=== PATIENT | female | born 1980 | race Two or more races ===

== ENCOUNTER 2020-09-29 15:11 | Emergency (ER) | payer MEDICAID ==
[~2020-09-29] VITALS: Ht 157.5 cm; Wt 73.4 kg
[~2020-09-29 15:11] MED LIST: CETI10CA PO; METO-93 PO
--- NOTE | 2020-09-29 16:52 | NUR ---
PT AMBULATORY TO ROOM AT THIS TIME.
[2020-09-29] MEDS ORDERED: SODIUM CHLORIDE 0.9% 1,000ML IVBOLUS ONE (17:00)
[2020-09-29 17:12] LABS: BASOPHILS % (AUTO) 1 % (0-1); EOSINOPHILS % (AUTO) 3 % (1-7); LYMPHOCYTES % (AUTO) 10 % (22-44); MEAN CORPUSCULAR HEMOGLOBIN 31.5 pg (27.0-34.8); MEAN CORPUSCULAR HGB CONC 33.4 g/dL (32.4-35.8); MEAN PLATELET VOLUME 8.3 fL (7.4-10.4); MONOCYTES % (AUTO) 7 % (2-9); NEUTROPHILS % (AUTO) 80 % (42-75); PLATELET COUNT 279 x10^3/uL (130-400); RED BLOOD COUNT 4.86 x10^6/uL (3.82-5.3); RED CELL DISTRIBUTION WIDTH 14.2 % (9.6-15.2)
[2020-09-29 17:14] LABS: MD NO
--- NOTE | 2020-09-29 17:22 | NUR ---
THIS IS A 39 YO FEMALE CMING IN WITH C/O FEVER, BODY ACHES, HEADACHE, AND COUGH X2 DAYS, WITH ONE EPISODE OF NAUSEA AND DIARRHEA. TEMP AT HOME 102.6. TOOK 500MG TYLENOL AT 1400. A&OX4, RESPIRATIONS EVEN AND UNLABORED, FREQUENT DRY COUGH PRESENT, LUNG SOUNDS CLEAR BUT DIMINISHED THROUGHOUT. ALL MONITORING IN PLACE, VSS, NADN AT THIS TIME. NSR ON VELVET CUTTER, PIV PLACED, IVF RUNNING. CALL LIGHT IN REACH
[2020-09-29 17:23] LABS: ALANINE AMINOTRANSFERASE 126 U/L (12-78); ALBUMIN 4.6 g/dL (3.4-5.0); ANION GAP 5 mmol/L (5-15); CALCIUM 9.4 mg/dL (8.5-10.1); CHLORIDE 108 mmol/L (98-107)
[2020-09-29 17:25] LABS: ALKALINE PHOSPHATASE 89 U/L (45-117); BILIRUBIN,TOTAL 0.3 mg/dL (0.2-1.0); TOTAL PROTEIN 8.5 g/dL (6.4-8.2)
--- NOTE | 2020-09-29 17:55 | NUR ---
ERP IN ROOM FOR EVAL AND COVID SWAB
[2020-09-29 19:00] VITALS: BP 111/77
--- NOTE | 2020-09-29 19:14 | NUR ---
Patient given discharge instructions and they have confirmed that they understand the instructions. Patient ambulatory with steady gait.
== END 2020-09-29 19:23 | disposition home or self-care (01) ==
LOC: ED 17:30
DX: U07.1 COVID-19 (principal); B34.9 Viral infection, unspecified; R00.0 Tachycardia, unspecified
CPT/HCPCS: 36415; 71045; 80053; 83605; 84145; 85025; 87040; 87635; 93005; 96360; 99285; J7030

== ENCOUNTER 2020-10-02 09:04 | Emergency (ER) | payer MEDICAID ==
[~2020-10-02] VITALS: Ht 157.5 cm; Wt 73.0 kg
--- NOTE | 2020-10-02 10:15 | NUR ---
PATIENT WALKED BACK FROM LOBBY.
[2020-10-02 11:08] LABS: PLATELET (DIC) 193 x10^3/uL (130-400)
[2020-10-02 11:26] LABS: D-DIMER (DIC) < 0.19 ug/mlFEU (0.00-0.52); FIBRINOGEN 359 mg/dL (200-340); PROTIME 10.7 Seconds (9.6-11.5); PTT 27 Seconds (25-31)
[2020-10-02 11:43] LABS: ANION GAP 7 mmol/L (5-15); CALCIUM 9.1 mg/dL (8.5-10.1); CHLORIDE 109 mmol/L (98-107)
[2020-10-02 11:44] LABS: ALANINE AMINOTRANSFERASE 151 U/L (12-78); ALBUMIN 4.2 g/dL (3.4-5.0); ALKALINE PHOSPHATASE 82 U/L (45-117); BILIRUBIN,TOTAL 0.4 mg/dL (0.2-1.0); C-REACTIVE PROTEIN, QUANT 2.67 mg/dL (0.02-0.49); TOTAL PROTEIN 8.2 g/dL (6.4-8.2)
--- NOTE | 2020-10-02 12:02 | NUR ---
spoke with colleen in pharmacy. reviewed exclusion and inclusion criteria regarding medication. poc to ifuse over 1 hour then monitor for one hour.
[2020-10-02 12:11] LABS: BASOPHILS % (AUTO) 1 % (0-1); EOSINOPHILS % (AUTO) 0 % (1-7); LYMPHOCYTES % (AUTO) 13 % (22-44); MEAN CORPUSCULAR HEMOGLOBIN 31.9 pg (27.0-34.8); MEAN CORPUSCULAR HGB CONC 34.4 g/dL (32.4-35.8); MEAN PLATELET VOLUME 8.8 fL (7.4-10.4); MONOCYTES % (AUTO) 6 % (2-9); NEUTROPHILS % (AUTO) 81 % (42-75); PLATELET COUNT 196 x10^3/uL (130-400); RED BLOOD COUNT 4.97 x10^6/uL (3.82-5.3); RED CELL DISTRIBUTION WIDTH 14.1 % (9.6-15.2)
[2020-10-02 12:14] LABS: MD NO
[2020-10-02] MEDS ORDERED: FILTER 0.22 MICRON IV ONE (12:30)
[2020-10-02] MEDS ORDERED: BAMLANIVIMAB 700 MG in SODIUM CHLORIDE 0.9% 180 ML IVPB ONE (12:30)
[2020-10-02] MEDS ORDERED: ONDANSETRON ODT 4 MG ONE (13:57)
[2020-10-02] MEDS ORDERED: IBUPROFEN 600 MG TABLET ONE (13:58)
[2020-10-02] MEDS ORDERED: IBUPROFEN 200 MG TABLET PO ONE (14:00)
[2020-10-02] MEDS ORDERED: ONDANSETRON ODT 4 MG PO ONE (14:00)
[2020-10-02 15:48] VITALS: BP 100/76
== END 2020-10-02 15:53 | disposition home or self-care (01) ==
LOC: ED 09:38
DX: U07.1 COVID-19 (principal); B34.9 Viral infection, unspecified; R07.89 Other chest pain; R05 Cough; R50.9 Fever, unspecified; R00.0 Tachycardia, unspecified
CPT/HCPCS: 36415; 71045; 80053; 82728; 83605; 83615; 84145; 85025; 85049; 85379; 85384; 85610; 85730; 86140; 87040; 93005; 99285; J7050; M0239; Q0162; Q0239; 96365

== ENCOUNTER 2020-10-07 10:29 | Emergency (ER) | payer MEDICAID ==
[~2020-10-07] VITALS: Ht 157.5 cm; Wt 72.1 kg
[2020-10-07 12:01] LABS: ALBUMIN 3.7 g/dL (3.4-5.0); ANION GAP 8 mmol/L (5-15); BASOPHILS % (AUTO) 1 % (0-1); CALCIUM 9.2 mg/dL (8.5-10.1); CHLORIDE 109 mmol/L (98-107); EOSINOPHILS % (AUTO) 1 % (1-7); LYMPHOCYTES % (AUTO) 14 % (22-44); MEAN CORPUSCULAR HEMOGLOBIN 31.6 pg (27.0-34.8); MEAN CORPUSCULAR HGB CONC 34.2 g/dL (32.4-35.8); MEAN PLATELET VOLUME 9.2 fL (7.4-10.4); MONOCYTES % (AUTO) 6 % (2-9); NEUTROPHILS % (AUTO) 79 % (42-75); PLATELET COUNT 166 x10^3/uL (130-400); RED BLOOD COUNT 4.37 x10^6/uL (3.82-5.3); RED CELL DISTRIBUTION WIDTH 13.7 % (9.6-15.2)
[2020-10-07 12:08] LABS: ALANINE AMINOTRANSFERASE 62 U/L (12-78); ALKALINE PHOSPHATASE 80 U/L (45-117); BILIRUBIN,TOTAL 0.5 mg/dL (0.2-1.0); CREATININE 0.62 mg/dL (0.55-1.02); TOTAL PROTEIN 7.7 g/dL (6.4-8.2)
[2020-10-07] MEDS ORDERED: ACETAMINOPHEN 500 MG TABLET PO ONE (12:30)
[2020-10-07] MEDS ORDERED: SODIUM CHLORIDE 0.9% 1,000ML IVBOLUS ONE (12:30)
[2020-10-07] MEDS ORDERED: ACETAMINOPHEN 500 MG TABLET ONE (12:32)
[2020-10-07 12:49] LABS: MD SCAN
--- NOTE | 2020-10-07 13:20 | NUR ---
Pt provided with commode.
[2020-10-07 14:16] VITALS: BP 108/77
== END 2020-10-07 14:18 | disposition home or self-care (01) ==
LOC: ED 12:38
DX: U07.1 COVID-19 (principal); J18.1 Lobar pneumonia, unspecified organism; R51.9 Headache, unspecified; R00.0 Tachycardia, unspecified
CPT/HCPCS: 36415; 71045; 80053; 83605; 84145; 85025; 87040; 93005; 96360; 99285; J7030

== ENCOUNTER 2020-10-08 19:01 | Inpatient (IN) | payer MEDICAID ==
[~2020-10-08] VITALS: Ht 160 cm; Wt 72.2 kg
[2020-10-08] MEDS ORDERED: ACETAMINOPHEN 325 MG TABLET ONE (19:44)
[2020-10-08] MEDS ORDERED: ACETAMINOPHEN 325 MG TABLET PO ONE (20:00)
[2020-10-08] MEDS ORDERED: SODIUM CHLORIDE 0.9% 1,000ML IVBOLUS ONE (20:00)
[2020-10-08] MEDS ORDERED: SODIUM CHLORIDE FLUSH 10ML SYR IVF ONE (20:00)
[2020-10-08 20:42] LABS: ALANINE AMINOTRANSFERASE 48 U/L (12-78); ALBUMIN 3.3 g/dL (3.4-5.0); ANION GAP 11 mmol/L (5-15); CALCIUM 8.8 mg/dL (8.5-10.1); CHLORIDE 110 mmol/L (98-107); CREATININE 0.62 mg/dL (0.55-1.02)
[2020-10-08 20:44] LABS: ALKALINE PHOSPHATASE 70 U/L (45-117); BILIRUBIN,TOTAL 0.3 mg/dL (0.2-1.0); TOTAL PROTEIN 7.2 g/dL (6.4-8.2)
[2020-10-08 20:53] LABS: BASOPHILS % (AUTO) 1 % (0-1); EOSINOPHILS % (AUTO) 1 % (1-7); LYMPHOCYTES % (AUTO) 17 % (22-44); MEAN CORPUSCULAR HEMOGLOBIN 31.3 pg (27.0-34.8); MEAN CORPUSCULAR HGB CONC 34.5 g/dL (32.4-35.8); MEAN PLATELET VOLUME 8.6 fL (7.4-10.4); MONOCYTES % (AUTO) 9 % (2-9); NEUTROPHILS % (AUTO) 73 % (42-75); PLATELET COUNT 253 x10^3/uL (130-400); RED BLOOD COUNT 4.11 x10^6/uL (3.82-5.3); RED CELL DISTRIBUTION WIDTH 13.4 % (9.6-15.2)
[2020-10-08] MEDS: NS + 40MEQ KCL 1,000 ML IV SCH (21:00)
[2020-10-08] MEDS ORDERED: DEXAMETHASONE 4 MG/ML, 5ML IVPush ONE (21:00)
[2020-10-08] MEDS ORDERED: DEXAMETHASONE 4 MG/ML, 1ML ONE (21:12)
[2020-10-08 21:19] LABS: MD NO
--- NOTE | 2020-10-08 21:45 | NUR ---
PT RESTING IN BED, PT A/O X4, PT AMBULATED TO BATHROOM WITH STEADY GAIT. PT ON MONITOR WITH VSS. PT MEDICATED PER JAN. PT DENIED ANY CURRENT WANTS OR NEEDS.
[2020-10-08] MEDS ORDERED: AZITHROMYCIN 500 MG in SODIUM CHLORIDE 0.9% 250 ML IVPB ONE (22:00)
[2020-10-08] MEDS ORDERED: POTASSIUM CHLORIDE 20 MEQ in SODIUM CHLORIDE 0.9% 1,000 ML IV ONE (22:00)
[2020-10-08] MEDS ORDERED: CEFTRIAXONE PMX 1GM/50ML 50 ML IVPB ONE (22:00)
[2020-10-08] MEDS: METOPROLOL SUCCINATE 50 MG TAB.ER.24H PO SCH (22:00)
[2020-10-08 22:08] LABS: C-REACTIVE PROTEIN, QUANT 9.4 mg/dL (0.02-0.49); D-DIMER (DIC) 0.3 ug/mlFEU (0.00-0.52); PROTIME 10.7 Seconds (9.6-11.5)
[2020-10-08] MEDS ORDERED: CEFTRIAXONE PMX 1GM/50ML 50 ML ONE (22:28)
[2020-10-08] MEDS ORDERED: METOPROLOL TARTRATE 50 MG TAB ONE (22:28)
[2020-10-08] MEDS ORDERED: BISACODYL 10 MG SUPP PR PRN (22:30)
[2020-10-08] MEDS ORDERED: POTASSIUM CHLORIDE 20 MEQ TAB.ER.PRT PO ONE (22:30)
[2020-10-08] MEDS ORDERED: POLYETHYLENE GLYCOL 17 GM PACKET PO PRN (22:30)
[2020-10-08] MEDS: AZITHROMYCIN 500 MG in SODIUM CHLORIDE 0.9% 250 ML IV SCH (22:30)
[2020-10-08] MEDS: SODIUM CHLORIDE 0.9% 1,000 ML IV SCH (22:30)
[2020-10-08] MEDS: CEFTRIAXONE PMX 1GM/50ML 50 ML IV SCH (22:30)
[2020-10-08] MEDS ORDERED: ASCORBIC ACID 250 MG TAB PO SCH (22:30)
[2020-10-08] MEDS ORDERED: ONDANSETRON ODT 4 MG PO PRN (22:30)
[2020-10-08] MEDS ORDERED: POTASSIUM CHLORIDE 20 MEQ TAB.ER.PRT ONE (22:52)
[2020-10-08] MEDS ORDERED: HEPARIN 5,000 UNITS/ML, 1ML ONE (22:52)
[2020-10-08] MEDS: HEPARIN 5,000 UNITS/ML, 1ML SQ SCH (22:57)
[2020-10-08] MEDS ORDERED: ASCORBIC ACID 500 MG TABLET ONE (23:18)
[2020-10-09] MEDS: NS + 40MEQ KCL 1,000 ML IV SCH ×3 (01:00→12:00)
--- NOTE | 2020-10-09 01:12 | NUR ---
PT SLEEPING IN BED, PT ON MONITOR WITH PT VSS
[2020-10-09] MEDS ORDERED: NS + 40MEQ KCL 1,000 ML IV ONE (04:07)
[2020-10-09 05:08] LABS: BASOPHILS % (AUTO) 0 % (0-1); EOSINOPHILS % (AUTO) 0 % (1-7); LYMPHOCYTES % (AUTO) 13 % (22-44); MEAN CORPUSCULAR HEMOGLOBIN 31.4 pg (27.0-34.8); MEAN CORPUSCULAR HGB CONC 33.9 g/dL (32.4-35.8); MEAN PLATELET VOLUME 8.4 fL (7.4-10.4); MONOCYTES % (AUTO) 4 % (2-9); NEUTROPHILS % (AUTO) 82 % (42-75); PLATELET COUNT 269 x10^3/uL (130-400); RED CELL DISTRIBUTION WIDTH 13.7 % (9.6-15.2)
[2020-10-09 05:09] LABS: MD NO
[2020-10-09 05:19] LABS: ANION GAP 7 mmol/L (5-15); CALCIUM 8.8 mg/dL (8.5-10.1); CHLORIDE 111 mmol/L (98-107)
[2020-10-09 05:20] LABS: CREATININE 0.54 mg/dL (0.55-1.02)
--- NOTE | 2020-10-09 05:59 | NUR ---
PT RESTING IN FLOOR BED, PT A/O X4, PT AMBULATED TO BATHROOM WITH STEADY GAIT. PT ON MONITOR WITH VSS. PT MEDICATED PER JAN. PT DENIED ANY CURRENT WANTS OR NEEDS.
[2020-10-09] MEDS: SODIUM CHLORIDE 0.9% 1,000 ML IV SCH ×4 (06:30→19:05)
--- NOTE | 2020-10-09 06:53 | NUR ---
report to rufino
[2020-10-09] MEDS ORDERED: CHOLECALCIFEROL 5,000u TAB ONE (07:26)
[2020-10-09] MEDS ORDERED: ASCORBIC ACID 500 MG TABLET ONE (07:27)
[2020-10-09] MEDS ORDERED: METOPROLOL TARTRATE 50 MG TAB ONE (07:27)
[2020-10-09] MEDS ORDERED: ZINC SULFATE 220 MG CAPSULE ONE (07:27)
[2020-10-09] MEDS ORDERED: HEPARIN 5,000 UNITS/ML, 1ML ONE ×2 (07:27→15:23)
[2020-10-09] MEDS ORDERED: MAGNESIUM SULFATE PMX 2GM/50ML 50 ML IV ONE (08:00)
[2020-10-09] MEDS ORDERED: MAGNESIUM SULFATE PMX 2GM/50ML 50 ML ONE (08:13)
--- NOTE | 2020-10-09 08:15 | NUR ---
PT MEDICATED PER MAR, GIVEN MEAL TRAY. VSS NO OTHER NEEDS AT THIS TIME
[2020-10-09] MEDS: SENNA/DOCUSATE TABLET PO SCH (08:25)
[2020-10-09] MEDS: CHOLECALCIFEROL (VITAMIN D3) 5000 IU CAP PO SCH (08:34)
[2020-10-09] MEDS: ZINC SULFATE 220 MG CAPSULE PO SCH (08:34)
[2020-10-09] MEDS: HEPARIN 5,000 UNITS/ML, 1ML SQ SCH ×2 (08:34→14:30)
[2020-10-09] MEDS: ASCORBIC ACID 500 MG TABLET PO SCH ×2 (08:34→16:30)
[2020-10-09] MEDS: CETIRIZINE 10 MG TABLET PO SCH (09:00)
[2020-10-09] MEDS: METOPROLOL SUCCINATE 50 MG TAB.ER.24H PO SCH ×2 (09:00→20:34)
--- NOTE | 2020-10-09 09:25 | NUR ---
Aaliyah piña in EDM - 10/09/20 at 0944 by CANDY PT TO DC HOME WITH HOME O2, DME FORM SIGNED BY PT PER BREAK RN.
--- NOTE | 2020-10-09 09:44 | NUR ---
MED REQUEST SENT AGAIN TO PHARM FOR MISSING AM MEDICATIONS
--- NOTE | 2020-10-09 10:44 | NUR ---
BSC PLACED AT BEDSIDE. PT INDEPENDENT WITH ADL'S.
[2020-10-09] MEDS ORDERED: DEXAMETHASONE 4 MG/ML, 1ML ONE (12:11)
[2020-10-09] MEDS: DEXAMETHASONE 4 MG/ML, 1ML IVPush SCH (12:13)
[2020-10-09 16:20] VITALS: BP 115/65
[2020-10-09 16:32] VITALS: BP 115/65
[2020-10-09] MEDS: ACETAMINOPHEN 325 MG TABLET PO PRN (17:37)
[2020-10-09 19:08] VITALS: BP 101/67
[2020-10-09] MEDS: GUAIFENESIN/DM 200-20MG, 10ML UDC PO PRN (20:34)
[2020-10-10] MEDS: HEPARIN 5,000 UNITS/ML, 1ML SQ SCH ×3 (00:10→17:18)
[2020-10-10] MEDS: CEFTRIAXONE PMX 1GM/50ML 50 ML IV SCH (00:10)
[2020-10-10] MEDS: SODIUM CHLORIDE 0.9% 1,000 ML IV SCH ×5 (00:11→17:18)
[2020-10-10] MEDS: AZITHROMYCIN 500 MG in SODIUM CHLORIDE 0.9% 250 ML IV SCH (01:00)
[2020-10-10 01:43] VITALS: BP 113/79
[2020-10-10 05:24] LABS: BASOPHILS % (AUTO) 0 % (0-1); EOSINOPHILS % (AUTO) 0 % (1-7); LYMPHOCYTES % (AUTO) 16 % (22-44); MEAN CORPUSCULAR HEMOGLOBIN 31.8 pg (27.0-34.8); MEAN CORPUSCULAR HGB CONC 34.7 g/dL (32.4-35.8); MEAN PLATELET VOLUME 8.2 fL (7.4-10.4); MONOCYTES % (AUTO) 8 % (2-9); NEUTROPHILS % (AUTO) 76 % (42-75); PLATELET COUNT 311 x10^3/uL (130-400); RED BLOOD COUNT 3.99 x10^6/uL (3.82-5.3); RED CELL DISTRIBUTION WIDTH 13.6 % (9.6-15.2)
[2020-10-10 05:25] LABS: MD NO
[2020-10-10 05:37] LABS: CHLORIDE 111 mmol/L (98-107)
[2020-10-10 05:53] LABS: ALANINE AMINOTRANSFERASE 42 U/L (12-78); ALBUMIN 2.9 g/dL (3.4-5.0); ALKALINE PHOSPHATASE 64 U/L (45-117); ANION GAP 7 mmol/L (5-15); BILIRUBIN,TOTAL 0.3 mg/dL (0.2-1.0); C-REACTIVE PROTEIN, QUANT 5.37 mg/dL (0.02-0.49); CALCIUM 8.7 mg/dL (8.5-10.1); CREATININE 0.55 mg/dL (0.55-1.02); TOTAL PROTEIN 6.9 g/dL (6.4-8.2)
[2020-10-10 08:01] VITALS: BP 108/74
[2020-10-10] MEDS: CHOLECALCIFEROL (VITAMIN D3) 5000 IU CAP PO SCH (10:21)
[2020-10-10] MEDS: DEXAMETHASONE 4 MG/ML, 1ML IVPush SCH (10:21)
[2020-10-10] MEDS: ZINC SULFATE 220 MG CAPSULE PO SCH (10:22)
[2020-10-10] MEDS: ASCORBIC ACID 500 MG TABLET PO SCH ×2 (10:22→17:16)
[2020-10-10] MEDS: SENNA/DOCUSATE TABLET PO SCH (10:23)
[2020-10-10] MEDS: CETIRIZINE 10 MG TABLET PO SCH (10:23)
[2020-10-10] MEDS: GUAIFENESIN/DM 200-20MG, 10ML UDC PO PRN ×2 (10:42→20:39)
[2020-10-10] MEDS: ACETAMINOPHEN 325 MG TABLET PO PRN ×2 (10:42→20:39)
[2020-10-10] MEDS ORDERED: AZIT250T PO (10:45)
[2020-10-10] MEDS ORDERED: ZINC220C7 PO (10:45)
[2020-10-10] MEDS ORDERED: CHOL500051 PO (10:45)
[2020-10-10] MEDS ORDERED: PRED20TA PO (10:45)
[2020-10-10] MEDS ORDERED: CEFD300C37 PO (10:45)
[2020-10-10] MEDS ORDERED: ASCO500T9 PO (10:45)
[2020-10-10 13:01] VITALS: BP 115/79
[2020-10-10 19:07] VITALS: BP 111/77
[2020-10-11 00:09] VITALS: BP 96/61
[2020-10-11] MEDS: CEFTRIAXONE PMX 1GM/50ML 50 ML IV SCH (00:19)
[2020-10-11] MEDS: HEPARIN 5,000 UNITS/ML, 1ML SQ SCH ×2 (01:25→10:30)
[2020-10-11] MEDS: AZITHROMYCIN 500 MG in SODIUM CHLORIDE 0.9% 250 ML IV SCH (01:25)
[2020-10-11] MEDS: SODIUM CHLORIDE 0.9% 1,000 ML IV SCH ×2 (01:26→10:30)
[2020-10-11] MEDS: GUAIFENESIN/DM 200-20MG, 10ML UDC PO PRN (06:04)
[2020-10-11] MEDS: ACETAMINOPHEN 325 MG TABLET PO PRN (06:05)
[2020-10-11 07:31] VITALS: BP 117/74
[2020-10-11] MEDS: CETIRIZINE 10 MG TABLET PO SCH (08:46)
[2020-10-11] MEDS: ZINC SULFATE 220 MG CAPSULE PO SCH (08:46)
[2020-10-11] MEDS: DEXAMETHASONE 4 MG/ML, 1ML IVPush SCH (08:46)
[2020-10-11] MEDS: SENNA/DOCUSATE TABLET PO SCH (08:46)
[2020-10-11] MEDS: CHOLECALCIFEROL (VITAMIN D3) 5000 IU CAP PO SCH (08:47)
[2020-10-11] MEDS: ASCORBIC ACID 500 MG TABLET PO SCH (08:47)
== END 2020-10-11 11:43 | disposition home or self-care (01) | DRG 177 ==
LOC: ED 19:20 → EDIP 21:50 → 4WST 10-09 15:59
PROVIDERS: ADMIT Internal Medicine; ATTEND Family Medicine
DX: U07.1 COVID-19 (principal); J12.89 Other viral pneumonia; D84.9 Immunodeficiency, unspecified; E87.2 Acidosis; E27.3 Drug-induced adrenocortical insufficiency; E87.6 Hypokalemia; Z79.52 Long term (current) use of systemic steroids; E86.0 Dehydration; Z91.018 Allergy to other foods
CPT/HCPCS: 36415; 71045; 80048; 80053; 82728; 83605; 83615; 83735; 84145; 85025; 85049; 85379; 85384; 85610; 85730; 86140; 87040; 96361; 96374; 99285; G0378; J0456; J0696; J1100; J1644; J3475; J3480; J7030; J7050

== ENCOUNTER 2020-10-14 12:04 | Emergency (ER) | payer MEDICAID ==
[~2020-10-14] VITALS: Ht 157.5 cm; Wt 73.3 kg
[~2020-10-14 12:04] MED LIST changes: +ASCO500T9 PO; +AZIT250T PO; +CEFD300C37 PO; +CHOL500051 PO; +PRED20TA PO; +ZINC220C7 PO
[2020-10-14 13:12] LABS: BASOPHILS % (AUTO) 1 % (0-1); EOSINOPHILS % (AUTO) 4 % (1-7); LYMPHOCYTES % (AUTO) 20 % (22-44); MEAN CORPUSCULAR HEMOGLOBIN 31.6 pg (27.0-34.8); MEAN CORPUSCULAR HGB CONC 34.6 g/dL (32.4-35.8); MONOCYTES % (AUTO) 7 % (2-9); NEUTROPHILS % (AUTO) 67 % (42-75); PLATELET COUNT 444 x10^3/uL (130-400); RED BLOOD COUNT 4.31 x10^6/uL (3.82-5.3); RED CELL DISTRIBUTION WIDTH 13.6 % (9.6-15.2)
[2020-10-14 13:15] LABS: ALBUMIN 3.2 g/dL (3.4-5.0); ANION GAP 10 mmol/L (5-15); CALCIUM 8.9 mg/dL (8.5-10.1); CHLORIDE 108 mmol/L (98-107)
[2020-10-14 13:22] LABS: ALANINE AMINOTRANSFERASE 36 U/L (12-78); ALKALINE PHOSPHATASE 72 U/L (45-117); BILIRUBIN,TOTAL 0.3 mg/dL (0.2-1.0); CREATININE 0.88 mg/dL (0.55-1.02); TOTAL PROTEIN 7.6 g/dL (6.4-8.2)
[2020-10-14 13:27] LABS: D-DIMER (DIC) 0.66 ug/mlFEU (0.00-0.52); PROTIME 10.5 Seconds (9.6-11.5)
[2020-10-14 13:43] LABS: MD SCAN
--- NOTE | 2020-10-14 16:43 | NUR ---
PT AMBULATORY TO ROOM AT THIS TIME.
--- NOTE | 2020-10-14 16:54 | NUR ---
ASSUMED CARE OF PATIENT. SHE IS A 39/F WHO STARTED HAVING COVID SYMPTOMS 17 DAYS AGO. TESTED POSITIVE AND WAS RELEASED FROM INPATIENT Wednesday10/11/20. SHE COMES IN TODAY COMPLAINING OF WORSENING FEVERS, ACHES, SOB, AND THROAT PAIN. SHE IS NOT REQUIRING O2 AT THIS TIME, CYCLING VITALS, AND CONTINUOUS SPO2. CALL LIGHT WITHIN REACH AND NO ADDITIONAL NEEDS AT THIS TIME.
[2020-10-14] MEDS ORDERED: SODIUM CHLORIDE FLUSH 10ML SYR IVF ONE (18:00)
[2020-10-14] MEDS ORDERED: SODIUM CHLORIDE 0.9% 1,000ML IVBOLUS ONE (18:00)
--- NOTE | 2020-10-14 19:00 | NUR ---
REPORT RECEIVED FROM JOHN GUALPLA
[2020-10-14] MEDS ORDERED: OMNIPAQUE 350 MG/ML, 100ML BOTTLE ONE (20:24)
--- NOTE | 2020-10-14 20:30 | NUR ---
ASSISTED IN PT CARE: PT TO BR WITH STEADY GAIT. NO ACUTE DISTRESS NOTED. CHART UP FOR RECHECK.
[2020-10-14 21:04] LABS: MICROSCOPIC NOT IND
[2020-10-14 21:30] VITALS: BP 107/68
== END 2020-10-14 21:54 | disposition home or self-care (01) ==
LOC: ED 13:26
DX: U07.1 COVID-19 (principal); J12.9 Viral pneumonia, unspecified; R06.02 Shortness of breath; R00.0 Tachycardia, unspecified
CPT/HCPCS: 36415; 71045; 71275; 80053; 81003; 82728; 83605; 83615; 84145; 85025; 85049; 85379; 85384; 85610; 85730; 86140; 87040; 93005; 96360; 99285; J7030; Q9967